=== PATIENT | male | born 1945 | race Caucasian/White ===

== ENCOUNTER 2025-10-07 17:52 | Emergency (ER) | payer SELFPAY ==
[2025-10-07 18:22] LABS: #Basophils 0.03 10x3/uL (0.0-0.2); #Eosinophils 0.34 10x3/uL (0.0-0.7); #Monocytes 0.90 10x3/uL (0.11-0.59); #Neutrophils 7.59 10x3/uL (1.40-6.50); %Basophils 0.3 % (0.0-1.0); %Eosinophils 3.0 % (0.0-10.0); %Lymphocytes 20.9 % (21.0-51.0); %Monocytes 8.0 % (0.0-10.0); %Neutrophils 67.4 % (42.0-75.0); Hematocrit 45.6 % (42.0-52.0); Hemoglobin 15.4 g/dL (14.0-18.0); Mean Corpuscular Hemoglobin 32.6 pg (27.0-31.0); Mean Corpuscular Volume 96.4 fL (78.0-98.0); Platelet Count 244 10x3/uL (130-400); Red Blood Cell (RBC) Count 4.73 mill/uL (4.70-6.10); White Blood Cell (WBC) Count 11.25 10x3/uL (4.8-10.8)
[2025-10-07 18:40] LABS: ALT (SGPT) 20 U/L (Less than 45); AST (SGOT) 30 U/L (11-34); Albumin 4.2 g/dL (3.1-4.5); Alkaline Phosphatase 63 U/L (40-110); Anion Gap 19 mmol/L (10-20); BUN (Urea Nitrogen) 10 mg/dL (8.4-25.7); Bilirubin, Total 0.5 mg/dL (0.3-1.2); Calc. Creatinine Clearance 0 mL/min (70-130); Calcium 9.8 mg/dL (7.8-10.44); Carbon Dioxide 25 mmol/L (23-31); Chloride 101 mmol/L (98-107); Globulin 3.4 g/dL (2.4-3.5); Glucose 117 mg/dL (83-110); Potassium 3.8 mmol/L (3.5-5.1); Sodium 141 mmol/L (136-145)
== END 2025-10-08 05:49 | disposition home or self-care (01) ==
LOC: ERS 17:52
DX: R11.0 Nausea (principal); R78.5 Finding of other psychotropic drug in blood
CPT/HCPCS: 71045; 80053; 83880; 84484; 85025; 93005; 94760